=== PATIENT | male | born 1995 | race Two or more races ===

== ENCOUNTER 2021-12-17 07:06 | Emergency (ER) | payer SELFPAY ==
[~2021-12-17] VITALS: Ht 180.3 cm; Wt 104.3 kg
[2021-12-17 07:28] VITALS: BP 130/90
[2021-12-17] MEDS: KETOROLAC TROMETH 60MG/2ML VIAL IM ONE ×2 (09:00→09:57)
[2021-12-17] MEDS ORDERED: CEPH500C PO (10:19)
[2021-12-17] MEDS ORDERED: IBUP800T27 PO (10:19)
== END 2021-12-17 11:00 | disposition home or self-care (01) ==
LOC: EDBD 07:06 → ER 07:06
DX: S42.025A Nondisplaced fracture of shaft of left clavicle, initial encounter for closed fracture (principal); S92.502A Displaced unspecified fracture of left lesser toe(s), initial encounter for closed fracture; S80.212A Abrasion, left knee, initial encounter; S80.211A Abrasion, right knee, initial encounter; V29.49XA Motorcycle driver injured in collision with other motor vehicles in traffic accident, initial encounter; Y93.89 Activity, other specified; Y92.89 Other specified places as the place of occurrence of the external cause; Y99.8 Other external cause status
CPT/HCPCS: 73030; 73630; 96372; 99284; J1885

== ENCOUNTER 2022-01-03 09:07 | Day surgery (SDC) | payer OTHER ==
[~2022-01-03] VITALS: Ht 182.9 cm; Wt 111.1 kg
[~2022-01-03 09:07] MED LIST: CEPH500C PO; IBUP800T27 PO
[2022-01-03] MEDS ORDERED: SUCCINYLCHOLINE 20mg/ml 100mg/5ml SYRINGE IV ONE (09:08)
[2022-01-03] MEDS ORDERED: HYDROmorphone HCL 2 MG/ML VL/or syr ONE (09:58)
[2022-01-03] MEDS ORDERED: PROPOFOL 10 MG/ML 20 ML IV ONE (09:59)
[2022-01-03] MEDS ORDERED: DexAMETHasone SOD PHOS 10MG/1ML VIAL INJ ONE (09:59)
[2022-01-03] MEDS ORDERED: ONDANSETRON HCL 4 MG/2 ML VIAL ONE ×2 (09:59)
[2022-01-03] MEDS ORDERED: fentaNYL CITRATE 100 MCG/2 ML VL ONE (09:59)
[2022-01-03] MEDS ORDERED: NEOSTIGMINE 1 MG/ML INJ (10mg/10ML VIAL) ONE (09:59)
[2022-01-03] MEDS ORDERED: ROCURONIUM 10MG/ML 10ML VIAL IV ONE (09:59)
[2022-01-03] MEDS ORDERED: GLYCOPYRROLATE 0.2 MG/ML 1ML VIAL ONE (09:59)
[2022-01-03] MEDS ORDERED: SODIUM CHLORIDE LOCK 10 ML ONE (09:59)
[2022-01-03] MEDS ORDERED: MIDAZOLAM HCL 2MG/2ML 2ml VIAL (1mg/ml) ONE (09:59)
[2022-01-03] MEDS ORDERED: BUPIVACAINE 0.25% INJ 50ML VIAL ONE (12:58)
[2022-01-03] MEDS ORDERED: ceFAZolin 1GM VL ONE (12:58)
[2022-01-03] MEDS ORDERED: HYDR1TAB97 PO (13:39)
[2022-01-03] MEDS ORDERED: METOCLOPRAMIDE HCL 5MG/ml INJ 2ml VIAL IV PRN (16:15)
[2022-01-03] MEDS ORDERED: HYDROmorphone HCL 2 MG/ML VL/or syr IV PRN ×2 (16:15)
[2022-01-03] MEDS ORDERED: MORPHINE SULFATE 4 MG/ML SYR/VIAL IV PRN (16:15)
[2022-01-03 16:50] VITALS: BP 145/84
== END 2022-01-03 17:10 | disposition home or self-care (01) ==
LOC: SUR 09:07
PROVIDERS: ATTEND Orthopaedic Surgery Sports Medicine
DX: S42.032A Displaced fracture of lateral end of left clavicle, initial encounter for closed fracture (principal); E66.9 Obesity, unspecified; F17.200 Nicotine dependence, unspecified, uncomplicated; Z68.35 Body mass index [BMI] 35.0-35.9, adult; Z20.822 Contact with and (suspected) exposure to COVID-19; X58.XXXA Exposure to other specified factors, initial encounter; Y92.89 Other specified places as the place of occurrence of the external cause; Y93.89 Activity, other specified; Y99.8 Other external cause status
CPT/HCPCS: 23515; 73000; 76000; C1713; C1769; J0330; J1100; J1170; J2250; J2405; J2704; J3010; J3490; U0003; J0690